=== PATIENT | male | born 1980 | race Caucasian/White ===

== ENCOUNTER 2017-08-20 20:58 | Emergency (ER) | payer SELFPAY ==
[~2017-08-20] VITALS: Ht 172.7 cm; Wt 77.5 kg
[2017-08-20 21:04] VITALS: Ht 172.7 cm; Wt 77.5 kg
--- NOTE | 2017-08-20 23:29 | ERD ---
ER Documentation Chief Complaint Date/Time DATE: 08/20/17 TIME: 23:21 Chief Complaint R knee pain d/t fall this AM from roof; pt unable to walk HPI 37-year-old male who presents emergency department for right knee pain. Stated that he fell this morning from a roof, fell foot high, landed on his right foot than right knee. Denies any headache, head injury, neck pain, shoulder pain, chest pain, back pain, abdominal pain, nausea, vomiting, constipation, diarrhea, urinary symptoms , loss of bowel bladder control, numbness or tingling sensation, fever, chills. No known drug allergies. No past medical history. Surgery: Right index finger surgery. Social: optical goods worker. Denies smoking, use of alcohol, use of illegal drugs. ROS All systems reviewed and are negative except as per history of present illness. Medications Home Meds Active Scripts Ibuprofen* (Motrin*) 800 Mg Tab, 800 MG PO Q8 Y for PAIN AND OR ELEVATED TEMP, # 30 TAB Prov:MILLIE LAIAR F 08/21/17 Tramadol HCl (Tramadol HCl) 50 Mg Tablet, 50 MG PO Q4 Y for PAIN, #10 TAB Prov:PASILABANKLAR F 08/21/17 Allergies Allergies: Coded Allergies: No Known Allergy (Unverified , 08/20/17) Physical Exam Vitals Vital Signs Date Time Temp Pulse Resp B/P Pulse Ox O2 Delivery O2 Flow Rate FiO2 08/20/17 21:04 98.1 7 20 120/74 95 Physical Exam Const: [] Head: Atraumatic Eyes: Normal Conjunctiva ENT: Normal External Ears, Nose and Mouth. Neck: Full range of motion..~ No meningismus. Resp: Clear to auscultation bilaterally Cardio: Regular rate and rhythm, no murmurs Abd: Soft, non tender, non distended. Normal bowel sounds Skin: No petechiae or rashes Back: No midline or flank tenderness Ext: No cyanosis, or edema. C-spine/T-spine/L-spine are in midline with good and full range of motion and has no swelling/discoloration/bulging/point of tenderness. No saddle anesthesia. Bilateral upper extremities are unremarkable. Bilateral hips are stable and unremarkable. Lower extremity is unremarkable. Right knee has mild swelling with no obvious deformity but has tenderness to palpation to medial aspect. Right humeral area is unremarkable. Right tibia and fibular aspect is unremarkable. Right ankle/foot are unremarkable. No neurovascular deficits. Neur: Awake and alert Psych: Normal Mood and Affect Results 24 hrs Current Medications Medications (Trade) Dose Ordered Sig/Dee Dee Route PRN Reason Start Time Stop Time Status Last Admin Dose Admin Acetaminophen/ Hydrocodone Bitart (Beatty (10/155)) 1 tab ONCE ONCE PO 08/20/17 23:30 08/20/17 23:31 DC 08/20/17 23:38 Procedures/MDM 37-year-old male who presents emergency department for right knee pain. Stated that he fell this morning from a roof, fell foot high, landed on his right foot than right knee. Denies any headache, head injury, neck pain, shoulder pain, chest pain, back pain, abdominal pain, nausea, vomiting, constipation, diarrhea, urinary symptoms , loss of bowel bladder control, numbness or tingling sensation, fever, chills. No known drug allergies. No past medical history. Surgery: Right index finger surgery. Social: optical goods worker. Denies smoking, use of alcohol, use of illegal drugs. Physical exam: C-spine/T-spine/L-spine are in midline with good and full range of motion and has no swelling/discoloration/bulging/point of tenderness. No saddle anesthesia. Bilateral upper extremities are unremarkable. Bilateral hips are stable and unremarkable. Lower extremity is unremarkable. Right knee has mild swelling with no obvious deformity but has tenderness to palpation to medial aspect. Right humeral area is unremarkable. Right tibia and fibular aspect is unremarkable. Right ankle/foot are unremarkable. No neurovascular deficits. Disease process was explained to the patient and family member. They both verbalized understanding and agreed with the diagnostic tests, treatment, and plan of care. X-ray of the L-spine: No evidence of fracture or subluxation. X-ray of the right knee: No evidence of fracture. Small joint effusion. Treatment: Beatty. Knee immobilizer. Crutches. Reevaluation: Denies headache, dizziness, blurry vision, neck pain, shoulder pain, chest pain, back pain, numbness or tingling sensation. Lung sounds are clear to auscultation. No neurological deficits. No neurovascular deficits. No neurovascular deficits prior to and after the application of knee immobilizer. Differential diagnosis: Fracture versus dislocation versus displacement versus contusion versus sprain versus spinal fracture Final diagnosis: Knee sprain, knee contusion Prescription: Tramadol. Motrin. Follow-up with primary care physician in the next 24-48 hours. PCP to refer patient to orthopedic doctor if symptoms persist. Come back here in the emergency department for any new symptoms or any worsening symptoms. All questions and concerns are answered. Patient and family member verbalized understanding and agreed with the plan of care. Hemodynamically stable on discharge. Departure Diagnosis: Primary Impression: Knee pain Additional Impressions: Knee sprain Knee contusion Condition: Stable Additional Instructions: Follow-up with primary care physician in the next 24-48 hours. PCP to refer patient to orthopedic doctor if symptoms persist. Come back here in the emergency department for any new symptoms or any worsening symptoms. All questions and concerns are answered. Patient and family member verbalized understanding and agreed with the plan of care. SIS LAI Aug 20, 2017 23:29
[2017-08-20] MEDS ORDERED: HYDROCODONE/APAP (10/325) TAB PO ONE (23:30)
--- NOTE | 2017-08-21 01:02 | RADRPT ---
PROCEDURE: Right knee. CLINICAL INDICATION: Pain. TECHNIQUE: 4 views including AP, lateral and oblique views of the right knee were obtained. The images reviewed on a PACS workstation. COMPARISON: None. FINDINGS: There is no fracture, dislocation or bone destruction. There is no significant joint space narrowin g. There is a small joint effusion. Bone mineralization is within normal limits. There is no radio paque foreign body or abnormal calcification. IMPRESSION: No evidence of fracture. Small joint effusion. .Quintin Wolfe MD, Date Time Electronically viewed and signed by .Quintin Wolfe MD, MD on 08/21/2017 01:01 .T/
--- NOTE | 2017-08-21 01:03 | RADRPT ---
PROCEDURE: Lumbar spine. CLINICAL INDICATION: Low back pain. TECHNIQUE: 4 views including AP, lateral and cone-down lateral view of the lumbar spine were obta ined. COMPARISON: None. FINDINGS: There is no acute fracture or subluxation. Lumbar vertebral body heights and alignment are within n ormal limits. Intervertebral disk spaces are within normal limits. The posterior elements are unre markable. IMPRESSION: No evidence of fracture or subluxation. .Quintin Wolfe MD, Date Time Electronically viewed and signed by .Quintin Wolfe MD, on 08/21/2017 01:03 .T/
[2017-08-21] MEDS ORDERED: TRAM50TA2 PO (01:18)
[2017-08-21] MEDS ORDERED: IBUP800T25 PO (01:19)
[2017-08-21 01:34] VITALS: BP 121/61; PULSE 87; RESP 16
== END 2017-08-21 01:44 | disposition home or self-care (01) ==
LOC: FTE 20:58
DX: S83.91XA Sprain of unspecified site of right knee, initial encounter (principal); S80.01XA Contusion of right knee, initial encounter; W17.89XA Other fall from one level to another, initial encounter; Y92.9 Unspecified place or not applicable
CPT/HCPCS: 72100; 73562